=== PATIENT | male | born 2000 | race Caucasian/White ===

== ENCOUNTER 2022-03-11 14:24 | Outpatient (CLI) | payer OTHER, SELFPAY ==
--- NOTE | 2022-03-11 14:38 | USCV_ITS ---
Pérez Daigle Age: 21 Gender: M : 2000 Exam Date: 03/11/2022 15:02 Ordering Phys: Chay Landry MD Technologist: Tanner Reyes Exam Location: [facility] – [place] Indication: Family history of bicuspid ao valve BP: 119 / 80 HR: 81 Rhythm: Sinus Technical Quality: Adequate MEASUREMENTS (Male / Female) Normal Values 2D ECHO LV Diastolic Diameter PLAX 4.0 cm 4.2 - 5.9 / 3.9 - 5.3 cm LV Systolic Diameter PLAX 2.6 cm IVS Diastolic Thickness 0.9 cm 0.6 - 1.0 / 0.6 - 0.9 cm IVS Systolic Thickness 1.1 cm LVPW Diastolic Thickness 1.2 cm 0.6 - 1.0 / 0.6 - 0.9 cm LVPW Systolic Thickness 1.3 cm LVOT Diameter 2.0 cm LV Ejection Fraction 2D Teich 64.7 % LV Ejection Fraction MOD 2C 61.3 % LV Ejection Fraction 2C AL 62.7 % LA Diameter 3.3 cm LA Width 3.2 cm LA Height 3.9 cm RA Width 3.9 cm RA Height 4.5 cm Aorta at Sinotubular Diameter 2.2 cm IVC Diameter 2.2 cm M-MODE Aortic Annulus Diameter 3.2 cm LA Ao Ratio MM 0.9 MV E Point Septal Separation 0.8 cm DOPPLER AV Peak Velocity 129.0 cm/s LVOT Peak Velocity 91.0 cm/s AV Area Cont Eq vti 2.0 cm squared AV Area Cont Eq pk 2.2 cm squared MV Peak Velocity 83.0 cm/s MV Area PHT 3.9 cm squared Mitral E to A Ratio 1.2 MV E' Velocity 40.5 cm/s Mitral E to MV E' Ratio 4.2 Mitral E to LV E' Lateral Ratio 3.5 Mitral E to LV E' Septal Ratio 5.4 TR Peak Velocity 248.5 cm/s TR Peak Gradient 24.7 mmHg TR Mean Velocity 212.5 cm/s TR Mean Gradient 18.1 mmHg TR Velocity Time Integral 63.7 cm Right Atrial Pressure 3.0 mmHg Pulmonary Artery Systolic Pressu 27.7 mmHg RV Acceleration Time 0.1 s RV Ejection Time 0.3 s RV AcT/ET 0.4 FINDINGS Left Ventricle Normal left ventricular size, systolic function and wall thickness, with no regional wall motion abnormalities. Left ventricular ejection fraction is estimated at 70 %. Normal diastolic function. Right Ventricle Normal right ventricular size and systolic function. Right ventricular systolic pressure 30 mmHg. Right Atrium Normal right atrial size. Left Atrium Normal left atrial size. Mitral Valve Structurally normal mitral valve. No mitral valve stenosis. Trace mitral valve regurgitation. Aortic Valve Structurally normal trileaflet aortic valve. No aortic valve stenosis. No aortic valve regurgitation. Tricuspid Valve Structurally normal tricuspid valve. Trace tricuspid valve regurgitation. Pulmonic Valve Structurally normal pulmonic valve. No pulmonary valve stenosis. Trace pulmonary valve regurgitation. Pericardium No pericardial effusion. Aorta Normal size aortic root and proximal ascending aorta. IVC Normal sized inferior vena cava. CONCLUSIONS 1. Normal left ventricular size, systolic function and wall thickness, with no regional wall motion abnormalities. Left ventricular ejection fraction is estimated at 70 %. Normal diastolic function. 2. Normal right ventricular size and systolic function. 3. Pulmonary artery pressure estimated at 30 mmHg. 4. No significant valvular abnormality. 5. No prior similar studies to compare. Maria Elena Aguilar MD (Electronically Signed) Final Date: 19 March 2022 16:24 S
== END 2022-03-11 14:25 | disposition home or self-care (01) ==
PROVIDERS: PCP Family Medicine; Visit Provider Family Medicine
DX: Z82.49 Family history of ischemic heart disease and other diseases of the circulatory system (principal); I08.1 Rheumatic disorders of both mitral and tricuspid valves
CPT/HCPCS: 93306